=== PATIENT | male | born 1980 | race Two or more races ===

== ENCOUNTER 2016-08-04 18:29 | Emergency (ER) | payer SELFPAY ==
[~2016-08-04] VITALS: Ht 177.8 cm; Wt 90.7 kg
[2016-08-04] MEDS ORDERED: ASPIRIN 325 MG TABLET PO ONE (20:15)
[2016-08-04] MEDS ORDERED: IV NORMAL SALINE 1000ML BAG 1,000 ML IV ONE (20:15)
[2016-08-04 20:30] LABS: BASO % 1 % (0-3); EOS % 1 % (0-3); HEMATOCRIT 42.9 % (39.0-53.0); HEMOGLOBIN 14.7 g/dL (13.0-17.5); LYMPH % 24 % (24-48); MEAN CORPUSCULAR HEMOGLOBIN 33 pg (25-35); MEAN CORPUSCULAR HGB CONC 34 g/dL (31-37); MEAN CORPUSCULAR VOLUME 95 fL (79-100); MONO % 6 % (0-9); NEUT % 69 % (31-73); PLATELET COUNT 245 x10^3/uL (140-400); RED CELL DISTRIBUTION WIDTH 12.8 % (11.5-14.5); WHITE BLOOD COUNT 8.3 x10^3/uL (4.0-11.0)
[2016-08-04 20:32] LABS: BILIRUBIN,URINE NEGATIVE (NEG); GLUCOSE,URINE NEGATIVE (NEG); NITRITE,URINE NEGATIVE (NEG); PH,URINE 5.5; PROTEIN,URINE NEGATIVE (NEG-TRACE); UROBILINOGEN,URINE 0.2 mg/dL (0.2 mg/dL)
[2016-08-04 20:38] LABS: BARBITURATES NEG (NEG); BENZODIAZEPINES NEG (NEG); CANNABINOIDS NEG (NEG); COCAINE NEG (NEG); METHADONE NEG (NEG); OPIATES NEG (NEG); PHENCYCLIDINE NEG (NEG)
[2016-08-04 20:39] LABS: BACTERIA,URINE 0 /HPF (0-FEW); RBC,URINE 0 /HPF (0-2); SQUAMOUS EPITHELIAL CELL,UR OCC /LPF; WBC,URINE OCC /HPF (0-4)
[2016-08-04 20:43] VITALS: BP 128/82
[2016-08-04 20:49] LABS: CALCIUM 9.2 mg/dL (8.5-10.1); CREATININE 0.9 mg/dL (0.7-1.3); GFR 95.5; POTASSIUM 4.1 mmol/L (3.5-5.1)
--- NOTE | 2016-08-04 20:55 | PHYS DOC ---
Past Medical History Past Medical History: Anxiety, Depression, Other Additional Past Medical Histor: dizziness Past Surgical History: No Surgical History Alcohol Use: Heavy Drug Use: None Adult General Chief Complaint Chief Complaint: DIZZY/LIGHT HEADED HPI HPI Patient is a 35 year old male who presents with complaint of palpitations and dizziness. Patient states that he has been having recurrent episodes over the past 2 weeks. The patient states that he had similar symptoms approximately 1 month ago and was treated for anxiety. Patient states that he ran out of anxiety medication 2 weeks ago. Patient states that his symptoms have been worsening since discontinuing the medication. The patient admits to daily use of alcohol, drinking at least 6 beers daily. Patient has been drinking this amount of alcohol for more than 6 years. The patient states his symptoms do worsen if he has not had alcohol and states that they improve when he drinks beer. Patient denies any known cardiac history. Patient states that when he gets worsening symptoms he feels like "I'm going to ." Patient notes that he gets numbness in both upper extremities and around his mouth when symptoms worsened. Review of Systems Review of Systems Constitutional: Anxiety, denies fever or chills [] Eyes: Denies change in visual acuity, redness, or eye pain [] HENT: Denies nasal congestion or sore throat [] Respiratory: Denies cough or shortness of breath [] Cardiovascular: Palpitations [] GI: Denies abdominal pain, nausea, vomiting, bloody stools or diarrhea [] : Denies dysuria or hematuria [] Musculoskeletal: Denies back pain or joint pain [] Integument: Denies rash or skin lesions [] Neurologic: Denies headache, focal weakness or sensory changes [] Current Medications Current Medications Current Medications Medications (Trade) Dose Ordered Sig/[facility] Start Time Stop Time Status Last Admin Dose Admin Aspirin (Yana Aspirin) 325 mg 1X ONCE 08/04/16 20:15 08/04/16 20:16 DC 08/04/16 20:38 325 MG Diazepam (Valium) 2.5 mg 1X ONCE 08/04/16 21:45 08/04/16 21:46 DC Sodium Chloride 1,000 ml @ 1,000 mls/hr 1X ONCE 08/04/16 20:15 08/04/16 21:14 DC 08/04/16 20:38 1,000 MLS/HR Allergies Allergies Allergies Coded Allergies Type Severity Reaction Last Updated Verified No Known Drug Allergies 08/04/16 No Physical Exam Physical Exam Constitutional: Alert, afebrile, appears anxious. [] HENT: Normocephalic, atraumatic, bilateral external ears normal, oropharynx moist, no oral exudates, nose normal. [] Eyes: PERRLA, EOMI, conjunctiva normal, no discharge. [] Neck: Normal range of motion, no tenderness, supple, no stridor. [] Cardiovascular: Tachycardic, regular rhythm, no murmur [] Lungs & Thorax: Bilateral breath sounds clear to auscultation [] Abdomen: Bowel sounds normal, soft, no tenderness, no masses, no pulsatile masses. [] Skin: Warm, dry, no erythema, no rash. [] Back: No tenderness, no CVA tenderness. [] Extremities: No tenderness, no cyanosis, no clubbing, ROM intact, no edema. [] Neurologic: Alert and oriented X 3, normal motor function, normal sensory function, no focal deficits noted. [] Current Patient Data Vital Signs Vital Signs Date Time Temp Pulse Resp B/P (MAP) Pulse Ox O2 Delivery O2 Flow Rate FiO2 08/04/16 20:43 116 16 128/82 (97) 96 Room Air 08/04/16 19:45 98.7 98.7 Lab Values Laboratory Tests Test 08/04/16 19:50 White Blood Count 8.3 x10^3/uL (4.0-11.0) Red Blood Count 4.50 x10^6/uL (4.30-5.70) Hemoglobin 14.7 g/dL (13.0-17.5) Hematocrit 42.9 % (39.0-53.0) Mean Corpuscular Volume 95 fL (79-100) Mean Corpuscular Hemoglobin 33 pg (25-35) Mean Corpuscular Hemoglobin Concent 34 g/dL (31-37) Red Cell Distribution Width 12.8 % (11.5-14.5) Platelet Count 245 x10^3/uL (140-400) Neutrophils (%) (Auto) 69 % (31-73) Lymphocytes (%) (Auto) 24 % (24-48) Monocytes (%) (Auto) 6 % (0-9) Eosinophils (%) (Auto) 1 % (0-3) Basophils (%) (Auto) 1 % (0-3) Neutrophils # (Auto) 5.7 x10^3uL (1.8-7.7) Lymphocytes # (Auto) 2.0 x10^3/uL (1.0-4.8) Monocytes # (Auto) 0.5 x10^3/uL (0.0-1.1) Eosinophils # (Auto) 0.1 x10^3/uL (0.0-0.7) Basophils # (Auto) 0.0 x10^3/uL (0.0-0.2) Urine Collection Type Unknown Urine Color Yellow Urine Clarity Clear Urine pH 5.5 Urine Specific [place] <=1.005 Urine Protein Negative mg/dL (NEG-TRACE) Urine Glucose (UA) Negative mg/dL (NEG) Urine Ketones (Stick) Negative mg/dL (NEG) Urine Blood Negative (NEG) Urine Nitrite Negative (NEG) Urine Bilirubin Negative (NEG) Urine Urobilinogen Dipstick 0.2 mg/dL (0.2 mg/dL) Urine Leukocyte Esterase Negative (NEG) Urine RBC 0 /HPF (0-2) Urine WBC Occ /HPF (0-4) Urine Squamous Epithelial Cells Occ /LPF Urine Bacteria 0 /HPF (0-FEW) Sodium Level 140 mmol/L (136-145) Potassium Level 4.1 mmol/L (3.5-5.1) Chloride Level 104 mmol/L (98-107) Carbon Dioxide Level 27 mmol/L (21-32) Anion Gap 9 (6-14) Blood Urea Nitrogen 13 mg/dL (8-26) Creatinine 0.9 mg/dL (0.7-1.3) Estimated GFR (Cockcroft-Gault) 95.5 BUN/Creatinine Ratio 14 (6-20) Glucose Level 104 mg/dL (70-99) H Calcium Level 9.2 mg/dL (8.5-10.1) Magnesium Level 2.1 mg/dL (1.8-2.4) Total Bilirubin 0.5 mg/dL (0.2-1.0) Aspartate Amino Transferase (AST) 29 U/L (15-37) Alanine Aminotransferase (ALT) 37 U/L (16-63) Alkaline Phosphatase 66 U/L (46-116) Creatine Kinase 315 U/L (39-308) H Creatine Kinase MB (Mass) 4.6 ng/mL (0.0-3.6) H Creatine Kinase MB Relative Index 1.5 % (0-4) Troponin I Quantitative < 0.017 ng/mL (0.000-0.055) QV-Pak-Y-Type Natriuretic Peptide 7 pg/mL (0-124) Total Protein 7.5 g/dL (6.4-8.2) Albumin 4.0 g/dL (3.4-5.0) Albumin/Globulin Ratio 1.1 (1.0-1.7) Urine Opiates Screen Neg (NEG) Urine Methadone Screen Neg (NEG) Urine Barbiturates Neg (NEG) Urine Phencyclidine Screen Neg (NEG) Urine Amphetamine/Methamphetamine Neg (NEG) Urine Benzodiazepines Screen Neg (NEG) Urine Cocaine Screen Neg (NEG) Urine Cannabinoids Screen Neg (NEG) Ethyl Alcohol Level 55 mg/dL (0-10) H Urine Ethyl Alcohol Pos (NEG) Laboratory Tests 08/04/16 19:50 Laboratory Tests 08/04/16 19:50 EKG EKG Interpreted by me: Heart rate 106, sinus tachycardia, normal intervals, normal axis, no acute ST/T-wave abnormalities present [] Radiology/Procedures Radiology/Procedures One view AP chest x-ray interpreted by me: No infiltrate, no effusions, normal cardiac silhouette [] Course & Med Decision Making Course & Med Decision Making Pertinent Labs and Imaging studies reviewed. (See chart for details) Patient was given IV fluids and IV Valium in the emergency department. Patient' s lab work unremarkable. Patient's symptoms are responding well to treatment with Valium. I have high suspicion that the patient's symptoms are due to alcohol withdrawal. I have low suspicion the patient is suffering from an acute cardiac event at this time. Due to presence of chest pain symptoms for greater than 4 hours with a negative troponin, the patient underwent one set of cardiac enzymes. The patient will be started on a Valium taper for treatment of withdrawal symptoms. I spoke with the patient and patient's family extensively in regards to alcohol withdrawal symptoms. I advised that the patient follow-up in the next 3-4 days with his primary doctor for reevaluation and also encouraged the patient to seek outpatient services with an alcohol detox program. Advised return to the emergency department for any worsening symptoms. Patient voiced understanding and in agreement with treatment plan. Dragon Disclaimer Dragon Disclaimer This electronic medical record was generated, in whole or in part, using a voice recognition dictation system. Departure Departure Impression: Primary Impression: Alcohol withdrawal Disposition: 01 HOME, SELF-CARE Condition: IMPROVED Referrals: NO PCP (PCP) Patient Instructions: Alcohol Withdrawal Additional Instructions: Follow-up with your primary doctor in 3-4 days. Return to the emergency department for any worsening symptoms. Scripts Diazepam (VALIUM) 5 Mg Tablet 5 MG PO QID Y for ALCOHOL WITHDRAWAL, #60 TAB Prov: BRYN CHO MD 08/04/16 Problem Qualifiers Primary Impression: Alcohol withdrawal Complication of substance-induced condition: uncomplicated Qualified Codes: F10.230 - Alcohol dependence with withdrawal, uncomplicated BRYN CHO MD Aug 04, 2016 20:55
[2016-08-04 21:01] LABS: ALBUMIN/GLOBULIN RATIO 1.1 (1.0-1.7); CKMB MASS 4.6 ng/mL (0.0-3.6); MAGNESIUM 2.1 mg/dL (1.8-2.4); TOTAL BILIRUBIN 0.5 mg/dL (0.2-1.0); TOTAL PROTEIN 7.5 g/dL (6.4-8.2)
[2016-08-04] MEDS ORDERED: DIAZ5TAB PO (21:55)
--- NOTE | 2016-08-05 07:57 | EKG ---
[facility] [address] [place] [address] Test Date: 2016-08-04 Test Time: 19:49:14 Pat Name: VIKTOR AVITIA Department: Room: Gender: M [employer]: : 1980 Requested By: BRYN CHO Order Number: [id number] Reading MD: Shannan Redman Measurements Intervals [place] Rate: 106 P: 32 FL: 122 QRS: 52 QRSD: 96 T: 28 QT: 332 QTc: 443 Interpretive Statements SINUS TACHYCARDIA OTHERWISE NORMAL ECG RI6.01 Unconfirmed report No previous ECG available for comparison Electronically Signed On 08-07-2016 22:28:01 CDT by Shannan Redman
--- NOTE | 2016-08-05 08:06 | RAD ---
Portable chest, 08/04/2016: History: Tachycardia The heart size and pulmonary vascularity are normal. No pulmonary infiltrates are seen. There is no evidence of pleural fluid. There is an old healed fracture of the left clavicle. IMPRESSION: No acute cardiopulmonary abnormality is detected.
== END 2016-08-04 22:15 | disposition home or self-care (01) ==
LOC: ER 18:29
DX: F10.239 Alcohol dependence with withdrawal, unspecified (principal); R00.0 Tachycardia, unspecified; F32.9 Major depressive disorder, single episode, unspecified; F41.9 Anxiety disorder, unspecified; Z79.899 Other long term (current) drug therapy
CPT/HCPCS: 36415; 71010; 80053; 80305; 80320; 81001; 82553; 83735; 83880; 84484; 85027; 93005; 96361; 96374; 96376; 99285; J3360; J7030; G0480; G0481